=== PATIENT | male | born 2000 | race Two or more races ===

== ENCOUNTER 2023-02-22 12:07 | Emergency (ER) | payer OTHER ==
[~2023-02-22] VITALS: Ht 180.3 cm; Wt 64.4 kg
== END 2023-02-22 17:22 | disposition home or self-care (01) ==
LOC: ER 12:07
PROVIDERS: Nurse Practitioner Family
DX: Z77.29 Contact with and (suspected) exposure to other hazardous substances (principal); Z20.822 Contact with and (suspected) exposure to COVID-19